=== PATIENT | male | born 1965 | race Caucasian/White ===

== ENCOUNTER 2023-04-29 00:57 | Inpatient (IN) | payer OTHER ==
[2023-04-29] MEDS ORDERED: hydrOXYzine PAMOATE 25 MG CAPSULE (FP) PO PRN (03:19)
[2023-04-29] MEDS ORDERED: IBUPROFEN 400 MG TABLET (FP) PO PRN (03:19)
[2023-04-29] MEDS ORDERED: NALOXONE HCL 0.4 MG/ML VIAL IM PRN (03:19)
[2023-04-29] MEDS ORDERED: guaiFENesin 600 MG TABLET.ER (FP) PO PRN (03:19)
[2023-04-29] MEDS ORDERED: ACETAMINOPHEN 325 MG TABLET (FP) PO PRN (03:19)
[2023-04-29] MEDS ORDERED: MAG HYDROX/AL HYDROX/SIMETH 30 ML UNIT-DOSE CUP PO PRN (03:19)
[2023-04-29] MEDS ORDERED: BENZOCAINE/MENTHOL (CHLORASEPTIC ) LOZENGE MM PRN (03:19)
[2023-04-29] MEDS ORDERED: NALOXONE HCL (KLOXXADO) 8 MG SPRAY NS PRN (03:19)
[2023-04-29] MEDS ORDERED: BISMUTH SUBSALICYLATE 524 MG/30 ML PO PRN (03:19)
[2023-04-29] MEDS ORDERED: POLYETHYLENE GLYCOL (HEALTHYLAX) 3350 17 GM PACKET PO PRN (03:19)
[2023-04-29] MEDS ORDERED: BENZONATATE 200 MG CAPSULE PO PRN (03:19)
[2023-04-29] MEDS ORDERED: MAGNESIUM HYDROX 2400MG/30ML ORAL SUSPENSION 30 ML CUP PO PRN (03:19)
[2023-04-29] MEDS ORDERED: IBUPROFEN 600 MG TABLET (FP) PO PRN (03:19)
[2023-04-29] MEDS ORDERED: NICOTINE POLACRILEX 2 MG GUM BUC PRN (03:19)
[2023-04-29] MEDS ORDERED: ALBUTEROL SO4 HFA INHALER IH PRN (07:58)
[2023-04-29] MEDS ORDERED: diazePAM 5 MG TABLET PO PRN (10:02)
[2023-04-29] MEDS ORDERED: BUPRENORPHINE HCL 150 MCG, BUPRENORPHINE HCL 75 MCG BC PRN (10:02)
[2023-04-29] MEDS: BUPRENORPHINE HCL 150 MCG, BUPRENORPHINE HCL 75 MCG BC ONE (10:43)
[2023-04-29] MEDS: PRENATAL VITAMINS W/ FOLIC ACID TABLET (FP) PO SCH (10:43)
[2023-04-29] MEDS: NICOTINE 21 MG/24 HOURS TOPICAL PATCH TD SCH (10:53)
[2023-04-29] MEDS: amLODIPine BESYLATE 5 MG TABLET (FP) PO SCH (13:33)
[2023-04-29] MEDS: ONDANSETRON *ODT* 4 MG TABLET SL PRN (13:42)
[2023-04-29] MEDS: cloNIDine HCL 0.1 MG TABLET PO ONE (22:26)
[2023-04-29] MEDS: THIAMINE HCL 100 MG TABLET (FP) PO SCH (22:26)
[2023-04-29] MEDS: MELATONIN 5 MG TABLETS PO SCH (22:26)
[2023-04-30] MEDS ORDERED: BUPRENORPHINE HCL 150 MCG, BUPRENORPHINE HCL 75 MCG BC PRN
[2023-04-30] MEDS: BUPRENORPHINE HCL 150 MCG, BUPRENORPHINE HCL 75 MCG BC SCH (06:10)
[2023-04-30 10:36] LABS: HEMATOCRIT 46.3 % (35.4-49); HEMOGLOBIN 15.3 GM/dL (11.7-16.9); MCH 29.6 pg (25.7-33.7); MEAN CELL VOLUME 89.5 fl (80-96); MEAN PLT VOLUME 8.5 fl (7.5-11.1); PLATELET COUNT 227 10^3/uL (134-434); RBC 5.18 M/mm3 (4.00-5.60); RDW 14.4 % (11.9-15.9); WHITE BLOOD COUNT 14.8 K/mm3 (4.0-10.0)
[2023-04-30] MEDS: LISINOPRIL 10 MG TABLET PO ONE (10:48)
[2023-04-30 10:50] LABS: POTASSIUM 3.6 mmol/L (3.5-5.1)
[2023-04-30 10:58] LABS: BLOOD UREA NITROGEN 27.2 mg/dL (7-18)
[2023-04-30 10:59] LABS: ALBUMIN 3.7 g/dl (3.4-5.0); CALCIUM 9.5 mg/dL (8.5-10.1)
[2023-04-30 11:01] LABS: CREATININE 0.8 mg/dL (0.55-1.3)
[2023-04-30 11:03] LABS: TOT PROT 7.7 g/dl (6.4-8.2)
[2023-04-30] MEDS: LOPERAMIDE HCL 2 MG CAPSULE PO PRN (14:10)
[2023-05-01] MEDS: BUPRENORPHINE HCL 450 MCG FILM BC SCH (06:02)
[2023-05-01] MEDS: amLODIPine BESYLATE 10 MG TABLET (FP) PO SCH (10:49)
[2023-05-01] MEDS: LISINOPRIL 20 MG TABLET PO SCH (10:49)
[2023-05-02] MEDS: BUPRENORPHINE/NALOXONE 4 MG/1 MG FILM PACKET SL SCH (06:37)
[2023-05-02 11:53] LABS: BASO % 0.3 % (0-2.0); EOS % 0.4 % (0-4.5); HEMATOCRIT 44.2 % (35.4-49); HEMOGLOBIN 14.8 GM/dL (11.7-16.9); LYMPH % 20.5 % (8-40); MCH 29.7 pg (25.7-33.7); MCHC 33.4 g/dl (32.0-35.9); MEAN CELL VOLUME 88.8 fl (80-96); MEAN PLT VOLUME 8.5 fl (7.5-11.1); MONO % 6.5 % (3.8-10.2); NEUT % 72.3 % (42.8-82.8); PLATELET COUNT 221 10^3/uL (134-434); RBC 4.98 M/mm3 (4.00-5.60); RDW 14.2 % (11.9-15.9); WHITE BLOOD COUNT 12.6 K/mm3 (4.0-10.0)
[2023-05-02] MEDS: TRIMETHOBENZAMIDE HCL 200MG/2ML INJ IM ONE (19:04)
[2023-05-03] MEDS: BUPRENORPHINE/NALOXONE 8 MG/2 MG FILM PACKET SL ONE (05:57)
[2023-05-03 06:28] VITALS: RESP 17
[2023-05-03 09:45] VITALS: BP 138/73; PULSE 86; TEMP 98
[2023-05-03] MEDS ORDERED: AMOXICILLIN 500 MG CAPSULE (FP) PO SCH (14:00)
== END 2023-05-03 12:15 | disposition home or self-care (01) | DRG 773 ==
LOC: YASAS 00:57 → Y6N 03:39
PROVIDERS: ADMIT Allergy & Immunology; ATTEND Allergy & Immunology
PROC: HZ2ZZZZ Detoxification Services for Substance Abuse Treatment (ICD-10-PCS; principal; 2023-04-29)
DX: F11.23 Opioid dependence with withdrawal (principal); F14.20 Cocaine dependence, uncomplicated; F17.210 Nicotine dependence, cigarettes, uncomplicated; D72.829 Elevated white blood cell count, unspecified; I10 Essential (primary) hypertension; J45.909 Unspecified asthma, uncomplicated; R35.0 Frequency of micturition; R30.9 Painful micturition, unspecified
CPT/HCPCS: 36415; 80053; 80305; 80307; 82947; 83036; 84520; 85025; 85027; 86780; 87635; Q0162